=== PATIENT | female | born 1990 | race Caucasian/White ===

== ENCOUNTER → 2016-07-27 | Outpatient (CLI) | payer MEDICAID ==
[~2016-07-27] MED LIST: NO HOME MEDICATIONS
== END ==
LOC: MHCPAIN 09:09
DX: G89.29 Other chronic pain (principal); M47.817 Spondylosis without myelopathy or radiculopathy, lumbosacral region; M54.16 Radiculopathy, lumbar region; M53.3 Sacrococcygeal disorders, not elsewhere classified; Z87.891 Personal history of nicotine dependence
CPT/HCPCS: G0463

== ENCOUNTER → 2016-08-11 | Outpatient (CLI) | payer MEDICAID | LOC: MHCPAIN 07:41 | DX: M47.817 Spondylosis without myelopathy or radiculopathy, lumbosacral region (principal) | CPT/HCPCS: J1100; Q9967 ==

== ENCOUNTER 2018-11-21 07:48 | Outpatient (RCR) | payer OTHER | END 2019-02-05 | disposition home or self-care (01) | LOC: WSOH | DX: M25.572 Pain in left ankle and joints of left foot (principal); F17.210 Nicotine dependence, cigarettes, uncomplicated; Z96.651 Presence of right artificial knee joint; Y99.0 Civilian activity done for income or pay | CPT/HCPCS: 24774; L1810 ==